=== PATIENT | female | born 1980 | race Caucasian/White ===

== ENCOUNTER 2020-01-25 10:59 | Observation (INO) | payer MEDICARE, OTHER ==
[2020-01-25] MEDS ORDERED: NALOXONE 0.4 MG/ML 1 ML VIAL ONE (11:09)
[2020-01-25] MEDS ORDERED: SODIUM CHLORIDE 0.9% 1,000 ML IV ONE ×2 (11:12→12:15)
[2020-01-25] MEDS ORDERED: NALOXONE 0.4 MG/ML 1 ML VIAL IV PRN ×3 (11:12→16:25)
--- NOTE | 2020-01-25 11:32 | XR ---
EXAMINATION TYPE: XR chest 1V portable DATE OF EXAM: 01/25/2020 COMPARISON: NONE HISTORY: Unresponsive. TECHNIQUE: Single frontal view of the chest is obtained. FINDINGS: There is no focal air space opacity, pleural effusion, or pneumothorax seen. Mediastinum i s slightly rotated secondary to patient positioning. The cardiac silhouette size is within normal li mits. The osseous structures are intact. IMPRESSION: No acute process.
[2020-01-25 11:48] LABS: Basophils # (A) 0.1 k/uL (0-0.2); Basophils % (A) 0 %; Eosinophils % (A) 0 %; HCT 46.9 % (34.0-46.0); HGB 15.7 gm/dL (11.4-16.0); Lymphocytes # (A) 1.1 k/uL (1.0-4.8); Lymphocytes % (A) 7 %; MCH 29.9 pg (25.0-35.0); MCHC 33.4 g/dL (31.0-37.0); MCV 89.5 fL (80.0-100.0); Mean Platelet Volume 7.5; Monocytes # (A) 0.4 k/uL (0-1.0); Monocytes % (A) 2 %; Neutrophils # (A) 15.9 k/uL (1.3-7.7); Neutrophils % (A) 90 %; Platelet Count 351 k/uL (150-450); RBC 5.24 m/uL (3.80-5.40); RDW 11.8 % (11.5-15.5); WBC 17.7 k/uL (3.8-10.6)
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
[2020-01-25 12:03] LABS: ALT 58 U/L (4-34); AST 115 U/L (14-36); Acetaminophen <10.0 ug/mL; African American GFR (CKD) >90 (>60 ml/min/1.73 sqM); Alkaline Phosphatase 151 U/L (38-126); Anion Gap 20 mmol/L; Blood Urea Nitrogen 13 mg/dL (7-17); Calcium 8.8 mg/dL (8.4-10.2); Carbon Dioxide 19 mmol/L (22-30); Chloride 102 mmol/L (98-107); Creatine Kinase 513 U/L (30-135); Glucose 71 mg/dL (74-99); Non-African American GFR(CKD) >90 (>60 ml/min/1.73 sqM); Potassium 4.9 mmol/L (3.5-5.1); Salicylate <1.0 mg/dL; Sodium 141 mmol/L (137-145); Total Bilirubin 0.6 mg/dL (0.2-1.3); Total Protein 8.6 g/dL (6.3-8.2)
[2020-01-25 12:05] LABS: Amphetamine Screen,Urine Not Detected (NotDetected); Cocaine Screen,Urine Not Detected (NotDetected); Opiate Screen,Urine Not Detected (NotDetected); Phencyclidine Screen,Urine Not Detected (NotDetected)
[2020-01-25 12:06] LABS: Barbiturate Screen,Urine Not Detected (NotDetected); Benzodiazepines Screen,Urine Not Detected (NotDetected); Methadone Screen, Urine Not Detected (NotDetected); Oxycodone Screen, Urine Not Detected (NotDetected); Tricyclic Antidepressant,Urine Not Detected (NotDetected); Urn Cannabinoid Scrn Not Detected (NotDetected)
[2020-01-25 12:17] LABS: Alcohol 383 mg/dL
--- NOTE | 2020-01-25 13:11 | CT ---
EXAMINATION TYPE: CT brain wo con DATE OF EXAM: 01/25/2020 COMPARISON: None HISTORY: Suspected overdose, altered mental status CT DLP: 1129.4 mGycm. Automated Exposure Control for Dose Reduction was Utilized. TECHNIQUE: CT scan of the head is performed without contrast. FINDINGS: There is no acute intracranial hemorrhage, mass effect, or midline shift identified. The ventricles and sulci are within normal limits in size. The globes are intact and the visualized sin uses are clear. IMPRESSION: No acute intracranial hemorrhage, mass effect, or midline shift is seen.
[2020-01-25] MEDS ORDERED: THIAMINE 100 MG/ML 2 ML VIAL IM STA (13:33)
[2020-01-25] MEDS ORDERED: LORazepam 2 MG/ML INJ IV PRN ×2 (13:33)
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
[2020-01-25] MEDS: SODIUM CHLORIDE 0.9% 1,000 ML IV SCH ×2 (15:12→21:00)
[2020-01-25] MEDS ORDERED: IBUPROFEN 400 MG TAB PO PRN (16:25)
[2020-01-25] MEDS ORDERED: ACETAMINOPHEN TAB 325 MG TAB PO PRN (16:25)
[2020-01-25] MEDS: LEVOTHYROXINE 75 MCG TAB PO SCH (19:08)
[2020-01-25] MEDS: THIAMINE 100 MG TAB PO SCH (19:08)
[2020-01-25] MEDS: LORazepam 2 MG/ML INJ IV PRN (20:15)
[2020-01-26] MEDS: LORazepam 2 MG/ML INJ IV PRN ×3 (03:00→10:00)
[2020-01-26] MEDS: SODIUM CHLORIDE 0.9% 1,000 ML IV SCH ×3 (03:30→18:29)
[2020-01-26] MEDS: LEVOTHYROXINE 75 MCG TAB PO SCH (05:59)
[2020-01-26] MEDS: THIAMINE 100 MG TAB PO SCH ×2 (05:59→18:29)
[2020-01-26 07:07] LABS: African American GFR (CKD) >90 (>60 ml/min/1.73 sqM); Anion Gap 4 mmol/L; Blood Urea Nitrogen 10 mg/dL (7-17); Calcium 7.7 mg/dL (8.4-10.2); Carbon Dioxide 22 mmol/L (22-30); Chloride 106 mmol/L (98-107); Glucose 83 mg/dL (74-99); Non-African American GFR(CKD) >90 (>60 ml/min/1.73 sqM); Potassium 4.3 mmol/L (3.5-5.1); Sodium 132 mmol/L (137-145)
[2020-01-26 07:15] LABS: Basophils % (A) 0 %; Eosinophils # (A) 0.1 k/uL (0-0.7); Eosinophils % (A) 1 %; HCT 36.1 % (34.0-46.0); Lymphocytes % (A) 24 %; MCH 30.6 pg (25.0-35.0); MCHC 33.1 g/dL (31.0-37.0); MCV 92.4 fL (80.0-100.0); Mean Platelet Volume 7.5; Monocytes # (A) 0.4 k/uL (0-1.0); Monocytes % (A) 5 %; Neutrophils # (A) 5.8 k/uL (1.3-7.7); Neutrophils % (A) 69 %; Platelet Count 245 k/uL (150-450); RBC 3.91 m/uL (3.80-5.40); RDW 11.9 % (11.5-15.5); WBC 8.4 k/uL (3.8-10.6)
[2020-01-26 07:17] LABS: HGB 11.9 gm/dL (11.4-16.0)
[2020-01-26 10:20] VITALS: RESP 17; TEMP 98
[2020-01-26] MEDS ORDERED: FOLIC ACID 1 MG TAB PO SCH (14:00)
[2020-01-26] MEDS ORDERED: MULTIVITAMINS, THERA 1 EACH TAB PO SCH (14:00)
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
[2020-01-26 16:52] VITALS: BP 110/70; PULSE 87
== END 2020-01-26 19:05 | disposition home or self-care (01) ==
LOC: EC 10:59 → 3SCARD 13:33
PROVIDERS: ADMIT Family Medicine; ATTEND Family Medicine
DX: F10.129 Alcohol abuse with intoxication, unspecified (principal); Y90.8 Blood alcohol level of 240 mg/100 ml or more; E03.9 Hypothyroidism, unspecified; S80.12XA Contusion of left lower leg, initial encounter; S80.11XA Contusion of right lower leg, initial encounter; D72.829 Elevated white blood cell count, unspecified; R74.8 Abnormal levels of other serum enzymes; G93.49 Other encephalopathy; R00.1 Bradycardia, unspecified; Z79.890 Hormone replacement therapy; Z79.899 Other long term (current) drug therapy; F17.210 Nicotine dependence, cigarettes, uncomplicated
CPT/HCPCS: 96376; 96375; 96361; 96374; 99285; 36415; 93005; 80053; 80048; 82140; 82550; 85025 ×2; 81025; 80306; 83520; 71045; 70450; G0378 ×2; G0480 ×2; J2060 ×2; J2310; 80320; 80329

== ENCOUNTER 2020-08-21 11:43 | Emergency (ER) | payer MEDICARE, OTHER ==
[2020-08-21 11:57] VITALS: RESP 18; TEMP 97.7
[2020-08-21] MEDS ORDERED: SODIUM CHLORIDE 0.9% 1,000 ML IV STA (12:00)
[2020-08-21 12:17] LABS: Basophils # (A) 0.1 k/uL (0-0.2); Basophils % (A) 1 %; Eosinophils # (A) 0.1 k/uL (0-0.7); Eosinophils % (A) 1 %; HCT 45.4 % (34.0-46.0); HGB 14.8 gm/dL (11.4-16.0); Lymphocytes # (A) 2.8 k/uL (1.0-4.8); Lymphocytes % (A) 34 %; MCHC 32.7 g/dL (31.0-37.0); MCV 94.9 fL (80.0-100.0); Mean Platelet Volume 6.6; Monocytes # (A) 0.4 k/uL (0-1.0); Monocytes % (A) 5 %; Neutrophils # (A) 4.7 k/uL (1.3-7.7); Neutrophils % (A) 57 %; Platelet Count 367 k/uL (150-450); RBC 4.79 m/uL (3.80-5.40); RDW 12.7 % (11.5-15.5); WBC 8.3 k/uL (3.8-10.6)
--- NOTE | 2020-08-21 12:27 | ED ---
General Adult HPI - General Source: patient, RN notes reviewed Mode of arrival: ambulatory Limitations: no limitations <Get Mansfield - Last Filed: 08/21/20 15:23> <Gia Cordoba - Last Filed: 08/21/20 22:33> - General Chief complaint: Syncope Stated complaint: Syncope Time Seen by Provider: 08/21/20 11:46 - History of Present Illness Initial comments: This is a 39-year-old female presents emergency Department with sheriff officer and EMS for evaluation of possible syncopal episode. Patient states that she does not remember much of this. Reports states that she is brought in to the holding cell area and which she began talking and then reportedly seemed to fall over. It was unclear if she struck her head. There was reports that she seemed to be possibly putting on a show or on clear this was real or if this was a seizure. Patient has no history of seizures. Patient does admit to alcohol and drug use. Patient states that she has a history of hypothyroidism she does take 100 g of levothyroxine daily. She denies any current complaints of chest pain, shortness breath, abdominal pain. Patient does complain of mild headache. There was reports that she stated that she was suicidal. (Get Mansfield) - Related Data Home Medications Medication Instructions Recorded Confirmed Levothyroxine Sodium [Synthroid] 75 mcg PO DAILY 01/25/20 01/25/20 Previous Rx's Medication Instructions Recorded Acetaminophen Tab [Tylenol] 650 mg PO Q6HR PRN tab 01/26/20 Folic Acid 1 mg PO DAILY 90 Days #90 tab 01/26/20 Multivitamins, Thera [Multivitamin 1 each PO DAILY 90 Days #90 tab 01/26/20 (formulary)] Thiamine [Vitamin B-1] 100 mg PO BID-W/MEALS 90 Days #90 01/26/20 tab Allergies Allergy/AdvReac Type Severity Reaction Status Date / Time No Known Allergies Allergy Verified 01/25/20 12:07 Review of Systems ROS Other: All systems not noted in ROS Statement are negative. <Get Mansfield - Last Filed: 08/21/20 15:23> ROS Other: All systems not noted in ROS Statement are negative. <Gia Cordoba - Last Filed: 08/21/20 22:33> ROS Statement: Those systems with pertinent positive or pertinent negative responses have been documented in the HPI. Past Medical History Past Medical History: Unable to Obtain Additional Past Medical History / Comment(s): Hypothyroid, alcohol abuse History of Any Multi-Drug Resistant Organisms: Unobtainable Past Surgical History: Unable to Obtain Additional Past Surgical History / Comment(s): Vaginal biopsy-benign Past Anesthesia/Blood Transfusion Reactions: No Reported Reaction Past Psychological History: Unable to Obtain Smoking Status: Current every day smoker Past Alcohol Use History: Abuse, Daily, Heavy - Past Family History Father Family Medical History: Seizure Disorder Additional Family Medical History / Comment(s): Father has had cardiac valve surgery and seizures after a head injury Mother Family Medical History: Hypertension Additional Family Medical History / Comment(s): Mother is . <Get Mansfield - Last Filed: 08/21/20 15:23> General Exam Limitations: no limitations General appearance: alert, in no apparent distress Head exam: Present: atraumatic, normocephalic, normal inspection Eye exam: Present: normal appearance, PERRL, EOMI. Absent: scleral icterus, conjunctival injection, periorbital swelling ENT exam: Present: normal exam, normal oropharynx, mucous membranes moist Neck exam: Present: normal inspection, full ROM. Absent: tenderness, meningismus, lymphadenopathy Respiratory exam: Present: normal lung sounds bilaterally. Absent: respiratory distress, wheezes, rales, rhonchi, stridor Cardiovascular Exam: Present: regular rate, normal rhythm, normal heart sounds. Absent: systolic murmur, diastolic murmur, rubs, gallop, clicks GI/Abdominal exam: Present: soft, normal bowel sounds. Absent: distended, tenderness, guarding, rebound, rigid Neurological exam: Present: alert, oriented X3, CN II-XII intact, reflexes normal. Absent: motor sensory deficit Skin exam: Present: warm, dry, intact, normal color. Absent: rash <Get Mansfield - Last Filed: 08/21/20 15:23> Course Vital Signs 08/21/20 08/21/20 11:52 12:48 Temperature 97.7 F Pulse Rate 91 89 Respiratory 18 18 Rate Blood Pressure 135/91 123/84 O2 Sat by Pulse 99 97 Oximetry EKG Findings - EKG Comments: EKG Findings:: EKG performed at 11:55 normal sinus rhythm prolonged QT rate of 88 DE 1:30 QRS 78 QT/QTc/484 <Get Mansfield - Last Filed: 08/21/20 15:23> Medical Decision Making - Lab Data Result diagrams: 08/21/20 12:03 08/21/20 12:03 <Get Mansfield - Last Filed: 08/21/20 15:23> - Lab Data Result diagrams: 08/21/20 12:03 08/21/20 12:03 - Radiology Data Radiology results: report reviewed <Gia Cordoba - Last Filed: 08/21/20 22:33> - Medical Decision Making 39-year-old female presents emergency room today for single episode. This Patient was given to me as a sign out by Get RENEE. At that time Patient was medically cleared for EPS evaluation she states she was suicidal. Patient was Is not sober until 8:30 PM. That time Patient was medically clear for evaluation. Patient's evaluated by EPS and determine the Patient can be discharged and does not need to be admitted for psychiatric services. Patient will be discharged at this time and will be returned back to [facility]. (Gia Cordoba) - Lab Data Lab Results 08/21/20 08/21/20 08/21/20 Range/Units 12:03 12:03 12:03 WBC 8.3 (3.8-10.6) k/uL RBC 4.79 (3.80-5.40) m/uL Hgb 14.8 (11.4-16.0) gm/dL Hct 45.4 (34.0-46.0) % MCV 94.9 (80.0-100.0) fL MCH 31.0 (25.0-35.0) pg MCHC 32.7 (31.0-37.0) g/dL RDW 12.7 (11.5-15.5) % Plt Count 367 (150-450) k/uL Neutrophils % 57 % Lymphocytes % 34 % Monocytes % 5 % Eosinophils % 1 % Basophils % 1 % Neutrophils # 4.7 (1.3-7.7) k/uL Lymphocytes # 2.8 (1.0-4.8) k/uL Monocytes # 0.4 (0-1.0) k/uL Eosinophils # 0.1 (0-0.7) k/uL Basophils # 0.1 (0-0.2) k/uL Sodium 144 (137-145) mmol/L Potassium 4.0 (3.5-5.1) mmol/L Chloride 108 H (98-107) mmol/L Carbon Dioxide 24 (22-30) mmol/L Anion Gap 12 mmol/L BUN 8 (7-17) mg/dL Creatinine 0.62 (0.52-1.04) mg/dL Est GFR (CKD-EPI)AfAm >90 (>60 ml/min/1.73 sqM) Est GFR (CKD-EPI)NonAf >90 (>60 ml/min/1.73 sqM) Glucose 97 (74-99) mg/dL Calcium 8.6 (8.4-10.2) mg/dL Magnesium 2.0 (1.6-2.3) mg/dL Total Bilirubin 0.4 (0.2-1.3) mg/dL AST 32 (14-36) U/L ALT 18 (4-34) U/L Alkaline Phosphatase 105 (38-126) U/L Troponin I (0.000-0.034) ng/mL Total Protein 8.0 (6.3-8.2) g/dL Albumin 4.7 (3.5-5.0) g/dL Urine Color Light Yellow Urine Appearance Clear (Clear) Urine pH 5.0 (5.0-8.0) Ur Specific [place] 1.009 (1.001-1.035) Urine Protein Negative (Negative) Urine Glucose (UA) Negative (Negative) Urine Ketones Negative (Negative) Urine Blood Small H (Negative) Urine Nitrite Negative (Negative) Urine Bilirubin Negative (Negative) Urine Urobilinogen <2.0 (<2.0) mg/dL Ur Leukocyte Esterase Negative (Negative) Urine RBC <1 (0-5) /hpf Urine WBC 1 (0-5) /hpf Ur Squamous Epith Cells 2 (0-4) /hpf Urine Bacteria Rare H (None) /hpf Urine Mucus Occasional H (None) /hpf Urine Opiates Screen (NotDetected) Ur Oxycodone Screen (NotDetected) Urine Methadone Screen (NotDetected) Ur Propoxyphene Screen (NotDetected) Ur Barbiturates Screen (NotDetected) U Tricyclic Antidepress (NotDetected) Ur Phencyclidine Scrn (NotDetected) Ur Amphetamines Screen (NotDetected) U Methamphetamines Scrn (NotDetected) U Benzodiazepines Scrn (NotDetected) Urine Cocaine Screen (NotDetected) U Marijuana (THC) Screen (NotDetected) Serum Alcohol 229 H* mg/dL 08/21/20 08/21/20 Range/Units 12:03 14:50 WBC (3.8-10.6) k/uL RBC (3.80-5.40) m/uL Hgb (11.4-16.0) gm/dL Hct (34.0-46.0) % MCV (80.0-100.0) fL MCH (25.0-35.0) pg MCHC (31.0-37.0) g/dL RDW (11.5-15.5) % Plt Count (150-450) k/uL Neutrophils % % Lymphocytes % % Monocytes % % Eosinophils % % Basophils % % Neutrophils # (1.3-7.7) k/uL Lymphocytes # (1.0-4.8) k/uL Monocytes # (0-1.0) k/uL Eosinophils # (0-0.7) k/uL Basophils # (0-0.2) k/uL Sodium (137-145) mmol/L Potassium (3.5-5.1) mmol/L Chloride (98-107) mmol/L Carbon Dioxide (22-30) mmol/L Anion Gap mmol/L BUN (7-17) mg/dL Creatinine (0.52-1.04) mg/dL Est GFR (CKD-EPI)AfAm (>60 ml/min/1.73 sqM) Est GFR (CKD-EPI)NonAf (>60 ml/min/1.73 sqM) Glucose (74-99) mg/dL Calcium (8.4-10.2) mg/dL Magnesium (1.6-2.3) mg/dL Total Bilirubin (0.2-1.3) mg/dL AST (14-36) U/L ALT (4-34) U/L Alkaline Phosphatase (38-126) U/L Troponin I <0.012 (0.000-0.034) ng/mL Total Protein (6.3-8.2) g/dL Albumin (3.5-5.0) g/dL Urine Color Urine Appearance (Clear) Urine pH (5.0-8.0) Ur Specific [place] (1.001-1.035) Urine Protein (Negative) Urine Glucose (UA) (Negative) Urine Ketones (Negative) Urine Blood (Negative) Urine Nitrite (Negative) Urine Bilirubin (Negative) Urine Urobilinogen (<2.0) mg/dL Ur Leukocyte Esterase (Negative) Urine RBC (0-5) /hpf Urine WBC (0-5) /hpf Ur Squamous Epith Cells (0-4) /hpf Urine Bacteria (None) /hpf Urine Mucus (None) /hpf Urine Opiates Screen Not Detected (NotDetected) Ur Oxycodone Screen Not Detected (NotDetected) Urine Methadone Screen Not Detected (NotDetected) Ur Propoxyphene Screen Not Detected (NotDetected) Ur Barbiturates Screen Not Detected (NotDetected) U Tricyclic Antidepress Not Detected (NotDetected) Ur Phencyclidine Scrn Not Detected (NotDetected) Ur Amphetamines Screen Not Detected (NotDetected) U Methamphetamines Scrn Not Detected (NotDetected) U Benzodiazepines Scrn Not Detected (NotDetected) Urine Cocaine Screen Not Detected (NotDetected) U Marijuana (THC) Screen Not Detected (NotDetected) Serum Alcohol mg/dL - Radiology Data CT of the brain was reviewed and negative for acute process (Gia Cordoba) Disposition <Get Mansfield - Last Filed: 08/21/20 15:23> Is patient prescribed a controlled substance at d/c from ED?: No Time of Disposition: 22:31 <Gia Cordoba - Last Filed: 08/21/20 22:33> Clinical Impression: Alcohol intoxication, Episode of syncope Disposition: HOME SELF-CARE Condition: Stable Instructions (If sedation given, give patient instructions): Alcohol Intoxication (ED), Syncope (ED) Additional Instructions: Pt is clear for senior care. Return to ED for any alarming signs or symptoms. Referrals: Vu Aguilar DO [Primary Care Provider] - 1-2 days
[2020-08-21 12:29] LABS: ALT 18 U/L (4-34); AST 32 U/L (14-36); African American GFR (CKD) >90 (>60 ml/min/1.73 sqM); Albumin 4.7 g/dL (3.5-5.0); Alkaline Phosphatase 105 U/L (38-126); Anion Gap 12 mmol/L; Blood Urea Nitrogen 8 mg/dL (7-17); Calcium 8.6 mg/dL (8.4-10.2); Carbon Dioxide 24 mmol/L (22-30); Chloride 108 mmol/L (98-107); Glucose 97 mg/dL (74-99); Non-African American GFR(CKD) >90 (>60 ml/min/1.73 sqM); Sodium 144 mmol/L (137-145); Total Bilirubin 0.4 mg/dL (0.2-1.3)
[2020-08-21 12:31] LABS: Alcohol 229 mg/dL
--- NOTE | 2020-08-21 13:12 | CT ---
EXAMINATION TYPE: CT brain wo con DATE OF EXAM: 08/21/2020 COMPARISON: 01/25/2020 INDICATION: Syncope and ETOH DLP: 1024.4 mGycm, Automated exposure control for dose reduction was used. CONTRAST: None CT of the brain is performed utilizing 3 mm thick sections through the posterior fossa and 3 mm thick sections through the remaining calvarium. Study is performed within 24 hours of arrival to the hosp ital. No abnormal hyperdensity is present to suggest an acute intracranial hemorrhage. No mass lesion is evident. No acute infarcts are evident. Ventricles and sulci are appropriate for the patient age. Paranasal sinuses and mastoid air cells within the [id number] are clear. IMPRESSIONS: 1. No acute intracranial process.
[2020-08-21 15:13] LABS: Appearance,Urine Clear (Clear); Bacteria,Urine Rare /hpf; Bilirubin,Urine Negative (Negative); Blood,Urine Small (Negative); Color,Urine Light Yellow; Glucose,Urine (UA) Negative (Negative); Ketones,Urine Negative (Negative); Leukocyte Esterase,Urine Negative (Negative); Mucus,Urine Occasional /hpf; Nitrite,Urine Negative (Negative); Protein,Urine Negative (Negative); RBC,Urine <1 /hpf (0-5); Specific Gravity,Urine 1.009 (1.001-1.035); Squamous Epithelial Cell,Urine 2 /hpf (0-4); Urobilinogen,Urine <2.0 mg/dL (<2.0); WBC,Urine 1 /hpf (0-5)
[2020-08-21] MEDS ORDERED: LORazepam 2 MG/ML INJ IV STA ×2 (16:04→22:12)
[2020-08-21 17:39] LABS: Amphetamine Screen,Urine Not Detected (NotDetected); Barbiturate Screen,Urine Not Detected (NotDetected); Benzodiazepines Screen,Urine Not Detected (NotDetected); Cocaine Screen,Urine Not Detected (NotDetected); Methadone Screen, Urine Not Detected (NotDetected); Opiate Screen,Urine Not Detected (NotDetected); Oxycodone Screen, Urine Not Detected (NotDetected); Phencyclidine Screen,Urine Not Detected (NotDetected); Tricyclic Antidepressant,Urine Not Detected (NotDetected); Urn Cannabinoid Scrn Not Detected (NotDetected)
[2020-08-21 22:43] VITALS: BP 108/71; PULSE 80
== END 2020-08-21 23:02 | disposition home or self-care (01) ==
LOC: SUPCPDRO 11:43 → EC 11:43
DX: F10.129 Alcohol abuse with intoxication, unspecified (principal); R45.851 Suicidal ideations; F17.200 Nicotine dependence, unspecified, uncomplicated
CPT/HCPCS: 99285 ×2; 96374 ×2; 96376 ×2; 96361 ×5; 82075; 36415; 93005; 80053; 83735; 84484; 85025; 81001; 80306; 70450; G0480; J2060; 80320

== ENCOUNTER 2022-04-17 22:48 | Observation (INO) | payer MEDICARE, OTHER ==
[2022-04-17 23:04] VITALS: TEMP 98.8
--- NOTE | 2022-04-17 23:08 | ED ---
Psych HPI - General Chief Complaint: Psychiatric Symptoms Stated Complaint: Pick-up order Time Seen by Provider: 04/17/22 23:07 Source: EMS, RN notes reviewed, old records reviewed Mode of arrival: EMS Limitations: altered mental status - History of Present Illness Initial Comments: This is a 41-year-old female to the ER today and a pickup order. Patient resents today for evaluation of psychiatric illness as well as alcohol intoxication dependence and abuse. Patient admits to recent significant alcohol intake and has been refusing to attend [facility] MD Complaint: feels depressed, altered mental status, other (Alcohol intoxica tion) -: week(s) Associated Psychiatric Symptoms: depression, racing thoughts History of same: Yes Quality: constant Improves With: none Context: recent alcohol abuse Associated Symptoms: denies other symptoms Treatments Prior to Arrival: placed on mental health hold If Self Harm: admits thoughts of self harm - Related Data Home Medications Medication Instructions Recorded Confirmed Levothyroxine Sodium [Synthroid] 75 mcg PO DAILY 01/25/20 01/25/20 Previous Rx's Medication Instructions Recorded Acetaminophen Tab [Tylenol] 650 mg PO Q6HR PRN tab 01/26/20 Folic Acid 1 mg PO DAILY 90 Days #90 tab 01/26/20 Multivitamins, Thera [Multivitamin 1 each PO DAILY 90 Days #90 tab 01/26/20 (formulary)] Thiamine [Vitamin B-1] 100 mg PO BID-W/MEALS 90 Days #90 01/26/20 tab Allergies Allergy/AdvReac Type Severity Reaction Status Date / Time No Known Allergies Allergy Verified 01/25/20 12:07 Review of Systems ROS Statement: Those systems with pertinent positive or pertinent negative responses have been documented in the HPI. ROS Other: All systems not noted in ROS Statement are negative. Past Medical History Past Medical History: Unable to Obtain Additional Past Medical History / Comment(s): Hypothyroid, alcohol abuse History of Any Multi-Drug Resistant Organisms: Unobtainable Past Surgical History: Unable to Obtain Additional Past Surgical History / Comment(s): Vaginal biopsy-benign Past Anesthesia/Blood Transfusion Reactions: No Reported Reaction Past Psychological History: Unable to Obtain Smoking Status: Current every day smoker Past Alcohol Use History: Abuse, Daily, Heavy Past Drug Use History: Marijuana - Past Family History Father Family Medical History: Seizure Disorder Additional Family Medical History / Comment(s): Father has had cardiac valve surgery and seizures after a head injury Mother Family Medical History: Hypertension Additional Family Medical History / Comment(s): Mother is . General Exam Limitations: altered mental status General appearance: alert, in no apparent distress, appears intoxicated, anxious Head exam: Present: atraumatic, normocephalic, normal inspection Eye exam: Present: normal appearance, PERRL, EOMI. Absent: scleral icterus, conjunctival injection, periorbital swelling ENT exam: Present: normal exam, mucous membranes dry Neck exam: Present: normal inspection. Absent: tenderness, meningismus, lymphadenopathy Respiratory exam: Present: normal lung sounds bilaterally. Absent: respiratory distress, wheezes, rales, rhonchi, stridor Cardiovascular Exam: Present: normal rhythm, tachycardia, normal heart sounds. Absent: systolic murmur, diastolic murmur, rubs, gallop, clicks GI/Abdominal exam: Present: soft, normal bowel sounds. Absent: distended, tenderness, guarding, rebound, rigid Extremities exam: Present: normal inspection, full ROM, normal capillary refill. Absent: tenderness, pedal edema, joint swelling, calf tenderness Back exam: Present: normal inspection Neurological exam: Present: alert, oriented X3, CN II-XII intact Psychiatric exam: Present: normal affect, normal mood Skin exam: Present: warm, dry, intact, normal color. Absent: rash Course Vital Signs 04/17/22 22:50 Temperature 98.8 F Pulse Rate 115 H Respiratory 22 Rate Blood Pressure 151/96 O2 Sat by Pulse 98 Oximetry - Reevaluation(s) Reevaluation #1: 04/18/22 01:09 Patient informed of results and questions answered Reevaluation #2: 04/18/22 01:09 Patient informed of results and questions answered Reevaluation #3: 04/18/22 01:09 Patient is in no acute distress \ Medical Decision Making - Medical Decision Making 41 female to the emergency department for evaluation with alcohol intoxication severe impending alcohol withdrawal. Patient also having severe depression and will have psychiatric evaluation - Lab Data Result diagrams: 04/18/22 00:16 04/18/22 00:16 Lab Results 04/18/22 04/18/22 04/18/22 Range/Units 00:16 00:16 00:16 WBC 16.0 H (3.8-10.6) k/uL RBC 5.16 (3.80-5.40) m/uL Hgb 15.5 (11.4-16.0) gm/dL Hct 47.3 H (34.0-46.0) % MCV 91.7 (80.0-100.0) fL MCH 30.0 (25.0-35.0) pg MCHC 32.7 (31.0-37.0) g/dL RDW 12.0 (11.5-15.5) % Plt Count 338 (150-450) k/uL MPV 7.1 Neutrophils % 70 % Lymphocytes % 24 % Monocytes % 4 % Eosinophils % 1 % Basophils % 1 % Neutrophils # 11.2 H (1.3-7.7) k/uL Lymphocytes # 3.8 (1.0-4.8) k/uL Monocytes # 0.6 (0-1.0) k/uL Eosinophils # 0.1 (0-0.7) k/uL Basophils # 0.1 (0-0.2) k/uL PT 9.8 (9.0-12.0) sec INR 0.9 (<1.2) Sodium (137-145) mmol/L Potassium (3.5-5.1) mmol/L Chloride (98-107) mmol/L Carbon Dioxide (22-30) mmol/L Anion Gap mmol/L BUN (7-17) mg/dL Creatinine (0.52-1.04) mg/dL Est GFR (CKD-EPI)AfAm (>60 ml/min/1.73 sqM) Est GFR (CKD-EPI)NonAf (>60 ml/min/1.73 sqM) Glucose (74-99) mg/dL Calcium (8.4-10.2) mg/dL Phosphorus (2.5-4.5) mg/dL Magnesium (1.6-2.3) mg/dL Total Bilirubin (0.2-1.3) mg/dL AST (14-36) U/L ALT (4-34) U/L Alkaline Phosphatase (38-126) U/L Total Protein (6.3-8.2) g/dL Albumin (3.5-5.0) g/dL Lipase (23-300) U/L Urine Color Colorless Urine Appearance Clear (Clear) Urine pH 5.5 (5.0-8.0) Ur Specific [place] 1.003 (1.001-1.035) Urine Protein Negative (Negative) Urine Glucose (UA) Negative (Negative) Urine Ketones Negative (Negative) Urine Blood Small H (Negative) Urine Nitrite Negative (Negative) Urine Bilirubin Negative (Negative) Urine Urobilinogen <2.0 (<2.0) mg/dL Ur Leukocyte Esterase Negative (Negative) Urine RBC <1 (0-5) /hpf Urine WBC <1 (0-5) /hpf Urine Mucus Rare H (None) /hpf Urine Opiates Screen Not Detected (NotDetected) Ur Oxycodone Screen Not Detected (NotDetected) Urine Methadone Screen Not Detected (NotDetected) Ur Propoxyphene Screen Not Detected (NotDetected) Ur Barbiturates Screen Not Detected (NotDetected) U Tricyclic Antidepress Not Detected (NotDetected) Ur Phencyclidine Scrn Not Detected (NotDetected) Ur Amphetamines Screen Not Detected (NotDetected) U Methamphetamines Scrn Not Detected (NotDetected) U Benzodiazepines Scrn Not Detected (NotDetected) Urine Cocaine Screen Not Detected (NotDetected) U Marijuana (THC) Screen Not Detected (NotDetected) Serum Alcohol mg/dL 04/18/22 Range/Units 00:16 WBC (3.8-10.6) k/uL RBC (3.80-5.40) m/uL Hgb (11.4-16.0) gm/dL Hct (34.0-46.0) % MCV (80.0-100.0) fL MCH (25.0-35.0) pg MCHC (31.0-37.0) g/dL RDW (11.5-15.5) % Plt Count (150-450) k/uL MPV Neutrophils % % Lymphocytes % % Monocytes % % Eosinophils % % Basophils % % Neutrophils # (1.3-7.7) k/uL Lymphocytes # (1.0-4.8) k/uL Monocytes # (0-1.0) k/uL Eosinophils # (0-0.7) k/uL Basophils # (0-0.2) k/uL PT (9.0-12.0) sec INR (<1.2) Sodium 140 (137-145) mmol/L Potassium 4.4 (3.5-5.1) mmol/L Chloride 105 (98-107) mmol/L Carbon Dioxide 23 (22-30) mmol/L Anion Gap 12 mmol/L BUN 6 L (7-17) mg/dL Creatinine 0.71 (0.52-1.04) mg/dL Est GFR (CKD-EPI)AfAm >90 (>60 ml/min/1.73 sqM) Est GFR (CKD-EPI)NonAf >90 (>60 ml/min/1.73 sqM) Glucose 101 H (74-99) mg/dL Calcium 8.9 (8.4-10.2) mg/dL Phosphorus 3.9 (2.5-4.5) mg/dL Magnesium 2.0 (1.6-2.3) mg/dL Total Bilirubin 0.5 (0.2-1.3) mg/dL AST 36 (14-36) U/L ALT 26 (4-34) U/L Alkaline Phosphatase 122 (38-126) U/L Total Protein 8.8 H (6.3-8.2) g/dL Albumin 5.0 (3.5-5.0) g/dL Lipase 103 (23-300) U/L Urine Color Urine Appearance (Clear) Urine pH (5.0-8.0) Ur Specific [place] (1.001-1.035) Urine Protein (Negative) Urine Glucose (UA) (Negative) Urine Ketones (Negative) Urine Blood (Negative) Urine Nitrite (Negative) Urine Bilirubin (Negative) Urine Urobilinogen (<2.0) mg/dL Ur Leukocyte Esterase (Negative) Urine RBC (0-5) /hpf Urine WBC (0-5) /hpf Urine Mucus (None) /hpf Urine Opiates Screen (NotDetected) Ur Oxycodone Screen (NotDetected) Urine Methadone Screen (NotDetected) Ur Propoxyphene Screen (NotDetected) Ur Barbiturates Screen (NotDetected) U Tricyclic Antidepress (NotDetected) Ur Phencyclidine Scrn (NotDetected) Ur Amphetamines Screen (NotDetected) U Methamphetamines Scrn (NotDetected) U Benzodiazepines Scrn (NotDetected) Urine Cocaine Screen (NotDetected) U Marijuana (THC) Screen (NotDetected) Serum Alcohol 305 H* mg/dL Disposition Clinical Impression: Alcohol intoxication, Depression, Psychosis, Acute anxiety, Adjustment reaction of adult life Disposition: ADMITTED IP TO THIS HOSP Condition: Fair Is patient prescribed a controlled substance at d/c from ED?: No Referrals: Nonstaff,Physician [Primary Care Provider] - 1-2 days Time of Disposition: 01:30
[2022-04-17] MEDS ORDERED: SODIUM CHLORIDE 0.9% 1,000 ML IV STA ×2 (23:31)
[2022-04-17] MEDS ORDERED: SODIUM CHLORIDE 0.9% 500 ML 500 ML IV STA (23:31)
[2022-04-17] MEDS ORDERED: LORazepam 2 MG/ML INJ IV STA (23:31)
[2022-04-17] MEDS ORDERED: ONDANSETRON 4 MG/2 ML VIAL IVP STA (23:32)
[2022-04-18 00:33] LABS: Basophils # (A) 0.1 k/uL (0-0.2); Basophils % (A) 1 %; Eosinophils # (A) 0.1 k/uL (0-0.7); Eosinophils % (A) 1 %; HCT 47.3 % (34.0-46.0); HGB 15.5 gm/dL (11.4-16.0); Lymphocytes # (A) 3.8 k/uL (1.0-4.8); Lymphocytes % (A) 24 %; MCHC 32.7 g/dL (31.0-37.0); MCV 91.7 fL (80.0-100.0); Mean Platelet Volume 7.1; Monocytes # (A) 0.6 k/uL (0-1.0); Monocytes % (A) 4 %; Neutrophils # (A) 11.2 k/uL (1.3-7.7); Neutrophils % (A) 70 %; Platelet Count 338 k/uL (150-450); RBC 5.16 m/uL (3.80-5.40)
[2022-04-18 00:41] LABS: ALT 26 U/L (4-34); AST 36 U/L (14-36); African American GFR (CKD) >90 (>60 ml/min/1.73 sqM); Alkaline Phosphatase 122 U/L (38-126); Anion Gap 12 mmol/L; Blood Urea Nitrogen 6 mg/dL (7-17); Calcium 8.9 mg/dL (8.4-10.2); Carbon Dioxide 23 mmol/L (22-30); Chloride 105 mmol/L (98-107); Glucose 101 mg/dL (74-99); Lipase 103 U/L (23-300); Non-African American GFR(CKD) >90 (>60 ml/min/1.73 sqM); Phosphorus 3.9 mg/dL (2.5-4.5); Potassium 4.4 mmol/L (3.5-5.1); Sodium 140 mmol/L (137-145); Total Bilirubin 0.5 mg/dL (0.2-1.3); Total Protein 8.8 g/dL (6.3-8.2)
[2022-04-18 00:43] LABS: INR 0.9 (<1.2); Prothrombin Time 9.8 sec (9.0-12.0)
[2022-04-18 00:52] LABS: Appearance,Urine Clear (Clear); Bilirubin,Urine Negative (Negative); Blood,Urine Small (Negative); Color,Urine Colorless; Glucose,Urine (UA) Negative (Negative); Ketones,Urine Negative (Negative); Leukocyte Esterase,Urine Negative (Negative); Mucus,Urine Rare /hpf; Nitrite,Urine Negative (Negative); PH, Urine 5.5 (5.0-8.0); Protein,Urine Negative (Negative); RBC,Urine <1 /hpf (0-5); Specific Gravity,Urine 1.003 (1.001-1.035); Urobilinogen,Urine <2.0 mg/dL (<2.0); WBC,Urine <1 /hpf (0-5)
[2022-04-18] MEDS ORDERED: ONDANSETRON 4 MG/2 ML VIAL IVP PRN (01:25)
[2022-04-18] MEDS ORDERED: NALOXONE 0.4 MG/ML 1 ML VIAL IV PRN (01:25)
[2022-04-18] MEDS ORDERED: THIAMINE 100 MG/ML 2 ML VIAL IM STA (01:26)
[2022-04-18] MEDS ORDERED: LORazepam 2 MG/ML INJ IV PRN ×3 (01:26)
[2022-04-18 01:31] LABS: Alcohol 305 mg/dL
[2022-04-18 01:33] LABS: Amphetamine Screen,Urine Not Detected (NotDetected); Barbiturate Screen,Urine Not Detected (NotDetected); Benzodiazepines Screen,Urine Not Detected (NotDetected); Cocaine Screen,Urine Not Detected (NotDetected); Methadone Screen, Urine Not Detected (NotDetected); Opiate Screen,Urine Not Detected (NotDetected); Oxycodone Screen, Urine Not Detected (NotDetected); Phencyclidine Screen,Urine Not Detected (NotDetected); Tricyclic Antidepressant,Urine Not Detected (NotDetected); Urn Cannabinoid Scrn Not Detected (NotDetected)
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
[2022-04-18] MEDS ORDERED: THIAMINE 100 MG TAB PO SCH (07:30)
[2022-04-18] MEDS ORDERED: HEPARIN SODIUM,PORCINE/PF 5,000 UNIT/0.5 ML SYRINGE SQ SCH (08:00)
[2022-04-18] MEDS: SODIUM CHLORIDE 0.9% 1,000 ML IV SCH ×2 (08:30→09:55)
[2022-04-18 08:43] VITALS: BP 126/89; PULSE 109; RESP 18
[2022-04-18] MEDS ORDERED: PANTOPRAZOLE 40 MG/10 ML VIAL IV SCH (09:00)
[2022-04-18] MEDS ORDERED: MULTIVITAMINS, THERA 1 EACH TAB PO SCH (09:00)
--- NOTE | 2022-04-18 11:25 | P.DS ---
Providers Date of admission: 04/18/22 01:25 Expected date of discharge: 04/18/22 Attending physician: Fidel Granados MD Consults: 04/18/22 01:25 Consult Physician Routine Consulting Provider: Kiel Christensen Consult Reason/Comments: depression Do you want consulting provider notified?: Yes Primary care physician: Physician Nonstaff Hospital Course: Discharge Diagnosis: Alcohol intoxication in active alcoholic suicidal ideation leukocytosis, reactive Hospital Course: Patient is a 40-year-old female with a history of hypothyroidism, EtOH use, and prior mental health admissions who presented to the ER via EMS with a pickup order from [facility]. In the ER she underwent an extensive evaluation. Her alcohol level was elevated she was therefore unable to be assessed by psychiatric services at that time. She was placed in observation. She had a clear sensorium. She was determined stable for mental health evaluation. Currently awaiting psychiatric services to evaluate the patient to determine whether she will need inpatient or outpatient mental health services. Patient seen and examined at bedside. She is feeling fine this morning. She denies any nausea, vomiting, headache. No tremors. She is alert and oriented 3. Vital signs reviewed and stable. General: non toxic, no distress, appears at stated age Derm: warm, dry Head: atraumatic, normocephalic, symmetric Eyes: EOMI, no lid lag, anicteric sclera Mouth: no lip lesion, mucus membranes moist Cardiovascular: S1S2 reg, no murmur, positive posterior tibial pulse bilateral, Lungs: CTA bilateral, no rhonchi, no rales , no accessory muscle use Abdominal: soft, nontender to palpation, no guarding, no appreciable organome dwayne Ext: no gross muscle atrophy, no edema, no contractures Neuro: CN II-XI grossly intact, no focal neuro deficits Psych: Alert, oriented, appropriate affect A total of 22 minutes of time were spent preparing this complex discharge summary. Patient was discharged on 04/18/22. Patient Condition at Discharge: Fair Plan - Discharge Summary New Discharge Prescriptions: New Folic Acid 1 mg PO DAILY #30 tablet Thiamine [Vitamin B-1] 100 mg PO BID-W/MEALS tab Continue Levothyroxine Sodium [Synthroid] 100 mcg PO DAILY Discontinued LORazepam [Ativan] 1 mg PO DAILY PRN PRN Reason: Anxiety Discharge Medication List Folic Acid 1 mg PO DAILY #30 tablet 04/18/22 [Rx] Levothyroxine Sodium [Synthroid] 100 mcg PO DAILY 04/18/22 [History] Thiamine [Vitamin B-1] 100 mg PO BID-W/MEALS tab 04/18/22 [Rx] Follow up Appointment(s)/Referral(s): Nonstaff,Physician [Primary Care Provider] - 1-2 days Discharge Disposition: HOME SELF-CARE
== END 2022-04-18 16:32 | disposition home or self-care (01) ==
LOC: EC 22:48 → 5NMEDONC 04-18 01:25
PROVIDERS: ADMIT Internal Medicine; ATTEND Internal Medicine
DX: F10.229 Alcohol dependence with intoxication, unspecified (principal); F32.A Depression, unspecified; F43.22 Adjustment disorder with anxiety; F29 Unspecified psychosis not due to a substance or known physiological condition; R45.851 Suicidal ideations; D72.829 Elevated white blood cell count, unspecified; Z63.0 Problems in relationship with spouse or partner; Z63.4 Disappearance and death of family member; E03.9 Hypothyroidism, unspecified; F17.200 Nicotine dependence, unspecified, uncomplicated; Y90.8 Blood alcohol level of 240 mg/100 ml or more; Z79.890 Hormone replacement therapy; Z98.890 Other specified postprocedural states; Z82.0 Family history of epilepsy and other diseases of the nervous system; Z82.49 Family history of ischemic heart disease and other diseases of the circulatory system
CPT/HCPCS: 96376; 96361; 96372; 96374; 96375; 99285; 82075; 36415; 80053; 83690; 83735; 84100; 85025; 85610; 81001; 80306; G0378; G0480; J2060; J3411; J2405; C9113; J1644; 80320

== ENCOUNTER 2024-09-16 19:57 | Observation (INO) | payer MEDICARE, OTHER ==
--- NOTE | 2024-09-16 20:23 | ED ---
Altered Mental Status HPI - General Stated Complaint: Overdose Time Seen by Provider: 09/16/24 20:22 Source: RN notes reviewed, old records reviewed, Caregiver Mode of arrival: EMS Limitations: altered mental status, physical limitation - History of Present Illness Initial Comments: This is a 43-year-old female with overdose alcohol overdose with multiple polysubstance overdose ingestion minimal response to Narcan Prior prior to the events of today patient was petitioned by family for psychiatric evaluation and treatment MD Complaint: altered mental status, confusion, decreased responsiveness, intoxication, weakness -: unknown Severity: severe Consistency of Symptoms: waxing and waning, getting worse Context: alcohol abuse, drug abuse Associated Symptoms: denies other symptoms - Related Data Home Medications Medication Instructions Recorded Confirmed Levothyroxine Sodium [Synthroid] 100 mcg PO DAILY 04/18/22 09/17/24 Allergies Allergy/AdvReac Type Severity Reaction Status Date / Time No Known Allergies Allergy Verified 09/17/24 10:39 Review of Systems ROS Statement: Those systems with pertinent positive or pertinent negative responses have been documented in the HPI. ROS Other: All systems not noted in ROS Statement are negative. Past Medical History Past Medical History: Unable to Obtain Additional Past Medical History / Comment(s): Hypothyroid, alcohol abuse History of Any Multi-Drug Resistant Organisms: Unobtainable Past Surgical History: Unable to Obtain Additional Past Surgical History / Comment(s): Vaginal biopsy-benign Past Anesthesia/Blood Transfusion Reactions: No Reported Reaction Past Psychological History: Unable to Obtain Smoking Status: Current every day smoker Past Alcohol Use History: Abuse, Daily, Heavy Past Drug Use History: Marijuana - Past Family History Father Family Medical History: Seizure Disorder Additional Family Medical History / Comment(s): Father has had cardiac valve surgery and seizures after a head injury Mother Family Medical History: Hypertension Additional Family Medical History / Comment(s): Mother is . General Exam Limitations: altered mental status, physical limitation General appearance: alert, in no apparent distress, lethargic, obtunded Head exam: Present: atraumatic, normocephalic, normal inspection Eye exam: Present: normal appearance, PERRL, EOMI. Absent: scleral icterus, con junctival injection, periorbital swelling ENT exam: Present: normal exam, mucous membranes moist Neck exam: Present: normal inspection. Absent: tenderness, meningismus, lymphadenopathy Respiratory exam: Present: normal lung sounds bilaterally. Absent: respiratory distress, wheezes, rales, rhonchi, stridor Cardiovascular Exam: Present: regular rate, normal rhythm, normal heart sounds. Absent: systolic murmur, diastolic murmur, rubs, gallop, clicks GI/Abdominal exam: Present: soft, normal bowel sounds. Absent: distended, tenderness, guarding, rebound, rigid Extremities exam: Present: normal inspection, full ROM, normal capillary refill. Absent: tenderness, pedal edema, joint swelling, calf tenderness Back exam: Present: normal inspection Neurological exam: Present: alert, oriented X3, CN II-XII intact Psychiatric exam: Present: normal affect, normal mood Skin exam: Present: warm, dry, intact, normal color. Absent: rash Course Vital Signs 09/16/24 09/16/24 09/16/24 20:21 21:00 21:30 Temperature 98.5 F Pulse Rate 101 H 97 103 H Respiratory 12 15 18 Rate Blood Pressure 143/99 131/96 126/99 O2 Sat by Pulse 97 97 97 Oximetry 09/16/24 09/16/24 09/16/24 22:00 22:30 23:00 Temperature Pulse Rate 137 H 113 H 102 H Respiratory 19 20 20 Rate Blood Pressure 130/106 112/92 102/66 O2 Sat by Pulse 97 96 96 Oximetry 09/16/24 09/17/24 09/17/24 23:30 00:00 00:30 Temperature Pulse Rate 108 H 109 H 110 H Respiratory 16 15 15 Rate Blood Pressure 101/71 106/70 98/64 O2 Sat by Pulse 95 97 97 Oximetry 09/17/24 09/17/24 09/17/24 01:00 06:00 07:17 Temperature 98.1 F Pulse Rate 101 H 96 104 H Respiratory 12 17 20 Rate Blood Pressure 102/68 123/66 120/61 O2 Sat by Pulse 98 93 L 98 Oximetry 09/17/24 09/17/24 09/17/24 12:00 13:00 14:51 Temperature Pulse Rate 82 78 77 Respiratory 20 16 20 Rate Blood Pressure 110/76 130/68 130/97 O2 Sat by Pulse 98 98 98 Oximetry 09/17/24 15:13 Temperature Pulse Rate 75 Respiratory 16 Rate Blood Pressure 130/80 O2 Sat by Pulse 98 Oximetry - Reevaluation(s) Reevaluation #1: 09/16/24 20:41 Medical records reviewed Reevaluation #2: 09/16/24 20:41 Patient symptoms unchanged Reevaluation #3: 09/16/24 20:41 Patient informed of results questions answered Reevaluation #4: Was pt. sent in by a medical professional or institution (THELMA Subramanian, PROCESS IMPROVEMENT SPECIALIST, urgent care, hospital, or skilled nursing...) When possible be specific @ -no Did you speak to anyone other than the patient for history (EMS, parent, family, police, friend...)? What history was obtained from this source @ -no Did you review nursing and triage notes (agree or disagree)? Why? @ -agree Are old charts reviewed (outside hosp., previous admission, EMS record, old EKG, old radiological studies, urgent care reports/EKG's, skilled nursing records)? Report findings @ -yes Differential Diagnosis (chest pain, altered mental status, abdominal pain women, abdominal pain men, vaginal bleeding, weakness, fever, dyspnea, syncope, headache, dizziness, GI bleed, back pain, seizure, CVA, palpatations, mental health, musculoskeletal)? @ -prior EKG interpreted by me (3pts min.). @ -yes X-rays interpreted by me (1pt min.). @ -no CT interpreted by me (1pt min.). @ -no U/S interpreted by me (1pt. min.). @ -no What testing was considered but not performed or refused? (CT, X-rays, U/S, labs)? Why? @ -none What meds were considered but not given or refused? Why? @ -none Did you discuss the management of the patient with other professionals (professionals i.e. THELMA Subramanian, PROCESS IMPROVEMENT SPECIALIST, lab, RT, psych nurse, social media manager, parts cleaner, teacher, senior compliance officer, case management assistant)? Give summary @ -no Was smoking cessation discussed for >3mins.? @ -no Was critical care preformed (if so, how long)? @ -no Were there social determinants of health that impacted care today? How? (Homelessness, low income, unemployed, alcoholism, drug addiction, transportation, low edu. Level, literacy, decrease access to med. care, shelter, rehab)? @ -none Was there de-escalation of care discussed even if they declined (Discuss DNR or withdrawal of care, Hospice)? DNR status @ -no What co-morbidities impacted this encounter? (DM, HTN, Smoking, COPD, CAD, Cancer, CVA, ARF, Chemo, Hep., AIDS, mental health diagnosis, sleep apnea, morbid obesity)? @ -none Was patient admitted / discharged? Hospital course, mention meds given and route, prescriptions, significant lab abnormalities, going to OR and other pertinent info. @ - 43 female to ER for altered mental status and overdose. Patient having unresponsive symptoms here in the ER minimal response to Narcan significant alcohol intoxication will admit for suicidal ideation under petition Admit Undiagnosed new problem with uncertain prognosis? @ -no Drug Therapy requiring intensive monitoring for toxicity (Heparin, Nitro, Insulin, Cardizem)? @ -no Were any procedures done? @ -no Diagnosis/symptom? @ -Overdose Acute, or Chronic, or Acute on Chronic? @ -Acute Uncomplicated (without systemic symptoms) or Complicated (systemic symptoms)? @ -Complicated Side effects of treatment? @ -no Exacerbation, Progression, or Severe Exacerbation? @ -exacerbation Poses a threat to life or bodily function? How? (Chest pain, USA, CO, pneumonia, PE, COPD, DKA, ARF, appy, cholecystitis, CVA, Diverticulitis, Homicidal, Suicidal, threat to staff... and all critical care pts) @ -yes suicide attempt Reevaluation #5: Differential Altered Mental Status: Hypoglycemia, DKA, hypercapnia, ETOH, overdose, CO poisoning, trauma, myxedema coma, HTN encephalopathy, infection, encephalitis, psychosis, intercranial hemorrhage, hepatic encephalopathy, meningitis, CVA, this is not meant to be an all-inclusive list - Consultations Consultation #1: Spoke with jaime who agrees to admit this patient Medical Decision Making - Medical Decision Making 43 female to ER for altered mental status and overdose. Patient having unresponsive symptoms here in the ER minimal response to Narcan significant alcohol intoxication will admit for suicidal ideation under petition - Lab Data Result diagrams: 09/16/24 20:15 09/16/24 20:15 Lab Results 09/16/24 09/16/24 09/16/24 Range/Units 20:15 20:15 20:32 WBC 14.1 H (3.8-10.6) k/uL RBC 4.91 (3.80-5.40) m/uL Hgb 15.0 (11.4-16.0) gm/dL Hct 43.7 (34.0-46.0) % MCV 89.1 (80.0-100.0) fL MCH 30.6 (25.0-35.0) pg MCHC 34.3 (31.0-37.0) g/dL RDW 12.0 (11.5-15.5) % Plt Count 320 (150-450) k/uL MPV 7.6 Neutrophils % 76 % Lymphocytes % 17 % Monocytes % 3 % Eosinophils % 1 % Basophils % 0 % Neutrophils # 10.7 H (1.3-7.7) k/uL Lymphocytes # 2.5 (1.0-4.8) k/uL Monocytes # 0.5 (0-1.0) k/uL Eosinophils # 0.1 (0-0.7) k/uL Basophils # 0.0 (0-0.2) k/uL Sodium 142 (137-145) mmol/L Potassium 4.7 (3.5-5.1) mmol/L Chloride 110 H (98-107) mmol/L Carbon Dioxide 21 L (22-30) mmol/L Anion Gap 11 mmol/L BUN 7 (7-17) mg/dL Creatinine 0.57 (0.52-1.04) mg/dL Est GFR (CKD-EPI)AfAm >90 (>60 ml/min/1.73 sqM) Est GFR (CKD-EPI)NonAf >90 (>60 ml/min/1.73 sqM) Glucose 96 (74-99) mg/dL Plasma Lactic Acid Karson 2.6 H* (0.7-2.0) mmol/L Calcium 9.0 (8.4-10.2) mg/dL Phosphorus 4.2 (2.5-4.5) mg/dL Magnesium 2.0 (1.6-2.3) mg/dL Total Bilirubin 0.8 (0.2-1.3) mg/dL AST 62 H (14-36) U/L ALT 37 H (4-34) U/L Alkaline Phosphatase 111 (38-126) U/L Total Protein 8.3 H (6.3-8.2) g/dL Albumin 4.7 (3.5-5.0) g/dL Lipase 144 (23-300) U/L Salicylates <1.0 mg/dL Acetaminophen <10.0 ug/mL Serum Alcohol 300 H* mg/dL - EKG Data -: EKG Interpreted by Me (EKG is sinus 90 KS 125 QRS 81 QTc 424) Disposition Clinical Impression: Suicide attempt by multiple drug overdose, Alcohol intoxication, Acute encephalopathy Disposition: ADMITTED IP TO THIS HOSP Condition: Stable Is patient prescribed a controlled substance at d/c from ED?: No Time of Disposition: 21:20
[2024-09-16 20:31] LABS: Basophils % (A) 0 %; Eosinophils # (A) 0.1 k/uL (0-0.7); Eosinophils % (A) 1 %; HCT 43.7 % (34.0-46.0); Lymphocytes # (A) 2.5 k/uL (1.0-4.8); Lymphocytes % (A) 17 %; MCH 30.6 pg (25.0-35.0); MCHC 34.3 g/dL (31.0-37.0); MCV 89.1 fL (80.0-100.0); Mean Platelet Volume 7.6; Monocytes # (A) 0.5 k/uL (0-1.0); Monocytes % (A) 3 %; Neutrophils # (A) 10.7 k/uL (1.3-7.7); Neutrophils % (A) 76 %; Platelet Count 320 k/uL (150-450); RBC 4.91 m/uL (3.80-5.40); WBC 14.1 k/uL (3.8-10.6)
[2024-09-16] MEDS: SODIUM CHLORIDE 0.9% 500 ML 500 ML IV STA (20:48)
[2024-09-16 20:49] LABS: ALT 37 U/L (4-34); Acetaminophen <10.0 ug/mL; African American GFR (CKD) >90 (>60 ml/min/1.73 sqM); Albumin 4.7 g/dL (3.5-5.0); Anion Gap 11 mmol/L; Blood Urea Nitrogen 7 mg/dL (7-17); Carbon Dioxide 21 mmol/L (22-30); Chloride 110 mmol/L (98-107); Glucose 96 mg/dL (74-99); Lipase 144 U/L (23-300); Non-African American GFR(CKD) >90 (>60 ml/min/1.73 sqM); Salicylate <1.0 mg/dL; Sodium 142 mmol/L (137-145); Total Bilirubin 0.8 mg/dL (0.2-1.3); Total Protein 8.3 g/dL (6.3-8.2)
[2024-09-16] MEDS: SODIUM CHLORIDE 0.9% 1,000 ML IV STA (20:49)
[2024-09-16 21:00] LABS: AST 62 U/L (14-36); Alcohol 300 mg/dL; Alkaline Phosphatase 111 U/L (38-126); Phosphorus 4.2 mg/dL (2.5-4.5); Potassium 4.7 mmol/L (3.5-5.1)
[2024-09-16] MEDS ORDERED: NALOXONE 0.4 MG/ML 1 ML VIAL IV PRN (21:17)
[2024-09-16] MEDS ORDERED: ONDANSETRON 4 MG/2 ML VIAL IVP PRN (21:17)
[2024-09-16] MEDS: PANTOPRAZOLE 40 MG/10 ML VIAL IV SCH (22:07)
[2024-09-16] MEDS: SODIUM CHLORIDE 0.9% 1,000 ML IV SCH (22:08)
[2024-09-16] MEDS: LORazepam 2 MG/ML INJ IV STA (22:14)
[2024-09-16 22:27] LABS: Appearance,Urine Clear (Clear); Bacteria,Urine Rare /hpf; Bilirubin,Urine Negative (Negative); Blood,Urine Small (Negative); Color,Urine Colorless; Glucose,Urine (UA) Negative (Negative); Ketones,Urine Negative (Negative); Leukocyte Esterase,Urine Negative (Negative); Mucus,Urine Rare /hpf; Nitrite,Urine Negative (Negative); PH, Urine 6.5 (5.0-8.0); Protein,Urine Negative (Negative); RBC,Urine 1 /hpf (0-5); Specific Gravity,Urine 1.005 (1.001-1.035); Squamous Epithelial Cell,Urine <1 /hpf (0-4); Urobilinogen,Urine <2.0 mg/dL (<2.0); WBC,Urine <1 /hpf (0-5)
[2024-09-16 22:39] LABS: Amphetamine Screen,Urine Not Detected (NotDetected); Barbiturate Screen,Urine Not Detected (NotDetected); Benzodiazepines Screen,Urine Not Detected (NotDetected); Cocaine Screen,Urine Not Detected (NotDetected); Methadone Screen, Urine Not Detected (NotDetected); Opiate Screen,Urine Not Detected (NotDetected); Oxycodone Screen, Urine Not Detected (NotDetected); Phencyclidine Screen,Urine Not Detected (NotDetected); Tricyclic Antidepressant,Urine Not Detected (NotDetected); Urn Cannabinoid Scrn Not Detected (NotDetected)
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
[2024-09-17] MEDS ORDERED: LORazepam 2 MG/ML INJ IV PRN ×2 (00:30)
--- NOTE | 2024-09-17 02:19 | XR ---
EXAM: XR Right Fingers, 2 or More Views CLINICAL HISTORY: XR Reason: R 3rd digit swelling and pain after trauma TECHNIQUE: Frontal, lateral and oblique views of the fingers of the right hand. COMPARISON: No relevant prior studies available. FINDINGS: Bones/joints: The osseous structures appear intact and normally aligned. Minimal early osteophyte formation involving the distal interphalangeal joint. No acute fracture is identified. Soft tissues: Mild soft tissue swelling over the third digit. No radiopaque foreign body. IMPRESSION: 1. Mild soft tissue swelling over the third digit. 2. Minimal early osteophyte formation involving the distal interphalangeal joint. No acute fracture is identified.
[2024-09-17] MEDS: THIAMINE 100 MG/ML 2 ML VIAL IM STA (02:47)
[2024-09-17] MEDS: LORazepam 2 MG/ML INJ IV PRN (05:40)
[2024-09-17 06:32] VITALS: TEMP 98.1
[2024-09-17] MEDS: ENOXAPARIN 40 MG/0.4 ML SYRINGE SQ SCH (07:24)
[2024-09-17] MEDS: PANTOPRAZOLE 40 MG TABLET PO SCH (07:25)
[2024-09-17] MEDS: MULTIVITAMINS, THERA 1 EACH TAB PO SCH (07:25)
--- NOTE | 2024-09-17 12:49 | P.DS ---
Providers Date of admission: 09/16/24 21:17 Expected date of discharge: 09/17/24 Attending physician: Alejandrina Bedoya MD Consults: 09/16/24 21:17 Consult Physician Routine Consulting Provider: Randell Gaffney Consult Reason/Comments: SI Do you want consulting provider notified?: Yes Primary care physician: Stated None Hospital Course: Discharge Diagnosis: Alcohol abuse Alcohol intoxication upon arrival Non-anion gap metabolic acidosis Transaminitis Hypothyroidism Polysubstance abuse Hospital Course: Patient is a 43-year-old female with a past medical history of hypothyroidism and alcohol abuse. She presented to the emergency department on 09/16/2024 with a chief complaint of alcohol intoxication. It is also documented that patient also has history of heroin, marijuana and cocaine use. Upon arrival to our facility, patient underwent evaluation in the emergency department. Vital signs upon arrival show blood pressure 143/99, heart rate 101, respiratory rate 12, temp 98.5 F, and SpO2 of 97% on room air. EKG completed showing sinus rhythm at 90 bpm with no noted T wave or ST abnormality showing no signs of acute ischemia upon personal review and interpretation. Labs completed and reviewed. CBC showing leukocytosis with WBC count of 14.1. BMP showing non-anion gap metabolic acidosis with chloride of 110, bicarb of 21, and anion gap of 11. Blood glucose 96. Initial lactate was elevated at 2.6. Magnesium 2.0. Liver profile showing elevated AST of 62 and ALT of 37. Lipase normal findings at 144. Urinalysis negative for infection. Urine hCG was negative for . Urine drug screen negative. Serum alcohol level was elevated at 300. Patient initially stating she has done with drinking and requesting assistance with rehab placement. She was admitted under our services and placed on CIWA protocol for alcohol withdrawal. Upon evaluation this morning patient reports feeling ready to go home at this time and denies any complaints. Lactic acidosis resolved with IV fluid hydration. Patient's CIWA score is currently 1. She is clinically sober at this time and stable for discharge home. Patient strongly advised against any and all alcohol use and was provided with community resources available to her including outpatient counseling, AA meetings, and inpatient substance abuse facilities if she changes her mind. Physical examination: Patient seen and examined at bedside. Vital signs reviewed and stable. General: Nontoxic, no distress and appears stated age. Disheveled appearance. Derm: Skin warm and dry, normal coloration for ethnicity. Head: Atraumatic, normocephalic and symmetric. Eyes: EOM's intact, no lid lag, and anicteric sclera Mouth: no lip lesions, mucus membranes moist Cardiovascular: regular rate and rhythm with normal S1S2, no murmur, positive posterior tibial pulses bilaterally, and cap refill < 2 seconds. Lungs: Respirations even, regular, and unlabored on room air. Lungs CTA bilaterally, no rhonchi, no rales, no wheezing, and no accessory muscle usage. Abdominal: soft, nontender to palpation, no guarding, no appreciable organomegaly Ext: ROM intact. No gross muscle atrophy, no edema, no contractures Neuro: Speech clear, face symmetrical and CN II-XII grossly intact with no noted focal neuro deficits Psych: Alert and oriented to person, place, time, and situation. Appropriate and pleasant affect. A total of 32 minutes of time were spent preparing this complex discharge summary. Pt was discharged on 09/17/2024 at 12:48 PM. Patient was seen independently by Nurse Practitioner. This document was prepared using [employer] dictation software. Please allow for errors in ditch rider while rare they do occur. Lazaro Dumont, MARITA rendered care for this patient independently, reviewed the findings and plan as documented in the note above. I did not physically speak with or examine the patient on this date. Patient Condition at Discharge: Stable Plan - Discharge Summary New Discharge Prescriptions: Continue Levothyroxine Sodium [Synthroid] 100 mcg PO DAILY Discharge Medication List Levothyroxine Sodium [Synthroid] 100 mcg PO DAILY 04/18/22 [History] Follow up Appointment(s)/Referral(s): [facility] [NON-STAFF] - 1 Week Patient Instructions/Handouts: Alcohol Intoxication (DC), Abuse of Alcohol (DC), Alcohol Withdrawal (GEN) Activity/Diet/Wound Care/Special Instructions: Activity: As tolerated. Diet: Regular diet Special Instructions: Strongly recommend avoiding any and all alcohol use. Thank you for allowing us to participate in your care, it was truly a pleasure having you for our patient!!! Discharge/Stand Alone Forms: AA Meetings [place] Resources, Outpatient Counseling, Inp Substance Abuse Facilities Discharge Disposition: HOME SELF-CARE
[2024-09-17 15:13] VITALS: BP 130/80; PULSE 75; RESP 16
--- NOTE | 2024-09-17 15:42 | P.PN ---
Progress Note - Text Progress Note Date: 09/17/24 I spoke with the primary provider (Lazaro Dumont NP) and she stated patient does not need psychiatry and she was discharged home prior to being seen by psychiatry.
--- NOTE | 2024-09-18 07:05 | P.PN ---
Subjective Progress Note Date: 09/17/24 Hospital Course: Patient is a 43-year-old female with a past medical history of hypothyroidism and alcohol abuse. She presented to the emergency department on 09/16/2024 with a chief complaint of alcohol intoxication. It is also documented that patient also has history of heroin, marijuana and cocaine use. Upon arrival to our facility, patient underwent evaluation in the emergency department. Vital signs upon arrival show blood pressure 143/99, heart rate 101, respiratory rate 12, temp 98.5 F, and SpO2 of 97% on room air. EKG completed showing sinus rhythm at 90 bpm with no noted T wave or ST abnormality showing no signs of acute ischemia upon personal review and interpretation. Labs completed and reviewed. CBC showing leukocytosis with WBC count of 14.1. BMP showing non-anion gap metabolic acidosis with chloride of 110, bicarb of 21, and anion gap of 11. Blood glucose 96. Initial lactate was elevated at 2.6. Magnesium 2.0. Liver profile showing elevated AST of 62 and ALT of 37. Lipase normal findings at 144. Urinalysis negative for infection. Urine hCG was negative for . Urine drug screen negative. Serum alcohol level was elevated at 300. . Physical examination: Patient seen and examined at bedside this morning. Patient initially presented with reports of intentional overdose on heroin, marijuana, and cocaine in addition to alcohol use. From time of arrival patient denied any drug use or suicidal ideations. 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 Currently CIWA score is 8 and pt being given ativan. Will cancel consult to psychiatry and told pt we will reeavaluate for possible discharge later today. Vital signs reviewed and stable. General: Nontoxic, no distress and appears stated age. Disheveled appearance. Derm: Skin warm and dry, normal coloration for ethnicity. Head: Atraumatic, normocephalic and symmetric. Eyes: EOM's intact, no lid lag, and anicteric sclera Mouth: no lip lesions, mucus membranes moist Cardiovascular: regular rate and rhythm with normal S1S2, no murmur, positive posterior tibial pulses bilaterally, and cap refill < 2 seconds. Lungs: Respirations even, regular, and unlabored on room air. Lungs CTA bilaterally, no rhonchi, no rales, no wheezing, and no accessory muscle usage. Abdominal: soft, nontender to palpation, no guarding, no appreciable organomegaly Ext: ROM intact. No gross muscle atrophy, no edema, no contractures Neuro: Speech clear, face symmetrical and CN II-XII grossly intact with no noted focal neuro deficits Psych: Alert and oriented to person, place, time, and situation. Appropriate and pleasant affect. Assessment and plan: Alcohol abuse Alcohol intoxication upon arrival Non-anion gap metabolic acidosis Transaminitis Hypothyroidism Polysubstance abuse, history of -Continue monitoring of CIWA scores and patient to be medicated with Ativan 0.5 mg every 4 hours as needed for CIWA score of 4-5, Ativan 1 mg every 4 hours for CIWA score of 6-7, Ativan 2 mg every 3 hours CIWA score of 8-9, and Ativan 2 mg every 2 hours forr CIWA score of 10 or greater. -Continuous IV hydration. -Thiamine 100 mg daily, and Multivitamin daily, and Folate 1 mg daily -Seizure, fall, aspiration, and elopement precautions in place. -Urine drug screen -Continued close monitoring of electrolytes and replace as needed. -Telemetry monitoring. CODE STATUS: Full code DVT prophylaxis: SCDs Anticipated discharge date: Likely later today Anticipated discharge place: Home Patient was seen independently by Nurse Pracitioner. This document was prepared using [employer] dictation software. Please allow for errors in chainer, while rare they do occur. Lazaro Dumont NP rendered care for this patient independently, reviewed the findings and plan as documented in the note above and agree with plan. I did not physically speak with or examine the patient on this date. Objective - Vital Signs Vital signs: Vital Signs Temp 98.1 F 09/17/24 06:00 Pulse 104 H 09/17/24 07:17 Resp 20 09/17/24 07:17 BP 120/61 09/17/24 07:17 Pulse Ox 98 09/17/24 07:17 FiO2 Intake & Output 09/16/24 09/17/24 09/17/24 18:59 06:59 18:59 Weight 54.431 kg - Labs CBC & Chem 7: 09/16/24 20:15 09/16/24 20:15 Labs: Abnormal Lab Results - Last 24 Hours (Table) 09/16/24 09/16/24 09/16/24 Range/Units 20:15 20:15 20:32 WBC 14.1 H (3.8-10.6) k/uL Neutrophils # 10.7 H (1.3-7.7) k/uL Chloride 110 H (98-107) mmol/L Carbon Dioxide 21 L (22-30) mmol/L Plasma Lactic Acid Karson 2.6 H* (0.7-2.0) mmol/L AST 62 H (14-36) U/L ALT 37 H (4-34) U/L Total Protein 8.3 H (6.3-8.2) g/dL Urine Blood (Negative) Urine Bacteria (None) /hpf Urine Mucus (None) /hpf Serum Alcohol 300 H* mg/dL 09/16/24 09/16/24 Range/Units 22:06 23:57 WBC (3.8-10.6) k/uL Neutrophils # (1.3-7.7) k/uL Chloride (98-107) mmol/L Carbon Dioxide (22-30) mmol/L Plasma Lactic Acid Karson 2.1 H* (0.7-2.0) mmol/L AST (14-36) U/L ALT (4-34) U/L Total Protein (6.3-8.2) g/dL Urine Blood Small H (Negative) Urine Bacteria Rare H (None) /hpf Urine Mucus Rare H (None) /hpf Serum Alcohol mg/dL
[2024-09-18] MEDS ORDERED: THIAMINE 100 MG TAB PO SCH (09:00)
== END 2024-09-17 15:14 | disposition home or self-care (01) ==
LOC: EC 19:57 → 4SSUR 21:17
PROVIDERS: ADMIT Internal Medicine; ATTEND Internal Medicine
DX: T50.912A Poisoning by multiple unspecified drugs, medicaments and biological substances, intentional self-harm, initial encounter (principal); T14.91XA Suicide attempt, initial encounter; F10.139 Alcohol abuse with withdrawal, unspecified; F10.129 Alcohol abuse with intoxication, unspecified; Y90.8 Blood alcohol level of 240 mg/100 ml or more; G93.40 Encephalopathy, unspecified; D72.829 Elevated white blood cell count, unspecified; E87.20 Acidosis, unspecified; E03.9 Hypothyroidism, unspecified; F17.200 Nicotine dependence, unspecified, uncomplicated; R74.01 Elevation of levels of liver transaminase levels; M79.644 Pain in right finger(s); M79.671 Pain in right foot; V18.4XXA Pedal cycle driver injured in noncollision transport accident in traffic accident, initial encounter; Y93.55 Activity, bike riding; Z79.890 Hormone replacement therapy
CPT/HCPCS: 96376; 82075; 96361; 96372; 96374; 96375; 99285; 36415; 93005; 80053; 83605 ×2; 83690; 83735; 84100; 85025; 81001; 81025; 80306; 80143; 80179; 73140; G0378 ×2; G0480; J2060 ×2; J3411; J1650; J2470; 80320